=== PATIENT | female | born 1945 | race Hispanic/Latino ===

== ENCOUNTER → 2018-03-20 | Day surgery (SDC) | payer MEDICARE, OTHER ==
[~2018-03-20] MED LIST: ANASTROZOLE1 MG PO; FENTANYL CITRATE/PF 100MCG/2 ML INJ ONE; LETROZOLE2.5 MG PO; LOSARTAN POTAS100 MG PO; MIDAZOLAM HCL 2 MG/2 ML VIAL ONE; OR PHACO EYE KIT ONE; PREOP PHACO EYE KIT ONE; PROLIA60 MG/1 ML INJ; VITAMIN D5000 UNIT PO
--- OUTSIDE RECORDS SUMMARY | 2018-03-20 08:14 | XMS REPORT | Clinical Summary ---
Author Author MERRITT [facility] Address Unknown Phone Unavailable Care Team Providers Care Shipper Name Role Phone José Miguel Wakefield MD PCP Unavailable Allergies No Known Allergies Medications End Date Status Medication Sig Dispensed Refills Start Date Active MULTIVIT Take by 0 &MINERALS/FERROUS FUM mouth. (MULTI VITAMIN ORAL) Active meloxicam (MOBIC) 15 MG Take 15 mg by 0 tablet mouth daily. Active estradiol (ESTRACE) 0.5 Take 0.45 mg 0 MG tablet by mouth daily . Active ferrous sulfate 325 (65 Take 325 mg 0 FE) MG tablet by mouth 3 (three) times daily with meals. Active propranolol (INDERAL) 10 Take 10 mg by 0 05/07/201 MG tabletIndications: mouth 3 5 Chronic hepatitis C (three) times without hepatic coma daily . (HCC), Abnormal MRI of abdomen, Cirrhosis (HCC), Anemia Active ranitidine (ZANTAC) 300 0 06/06/201 MG tabletIndications: 5 Chronic hepatitis C without hepatic coma (HCC) Active milk thistle 175 mg Take 175 mg 0 tablet by mouth daily. Active estrogens, conjugated, Take by mouth 0 (PREMARIN) 0.3 MG tablet for 21 days then do not take for 7 days. . Active lisinopril Take 5 mg by 0 (PRINIVIL,ZESTRIL) 5 MG mouth daily. tabletIndications: Other cirrhosis of liver (HCC), Chronic hepatitis C without hepatic coma (HCC) Active anastrozole (ARIMIDEX) 1 Take 1 mg by 0 mg tablet mouth daily. Active losartan (COZAAR) 100 MG Take 100 mg 0 tablet by mouth daily. Active Missing or Non-Formulary Iron 27 0 Medication mg/vitamin d3 25 mcg(1000iu) 2 by mouth daily. . Active denosumab (PROLIA) 60 Inject 60 mg 0 mg/mL Syrg subcutaneousl y every 6 (six) months. Active Problems Problem Noted Date Chronic fatigue 2017 Obesity 12/14/2015 Advanced fibrosis /early Cirrhosis 08/20/2014 Iron deficiency anemia 08/20/2014 Chronic hepatitis C without hepatic coma 08/01/2014 Screening for malignant neoplasm 05/01/2014 Last Assessment & Plan: There is a strong association between chronic HCV infection and the development of hepatocellular carcinoma. Hepatitis C accounts for at least one third of the cases of HCC in the [place]. Due to the risk of developing HCC, we will order an MRI and AFP today. Immunity status testing 05/01/2014 Last Assessment & Plan: Encounters Care Team Description Date Type Specialty Anna Gamble MD Cirrhosis of liver without ascites, unspecified hepatic cirrhosis type (HCC) 11/16/2017 Hospital Radiology Encounter Ruiz Nolan MD 11/15/2017 Outside Orders Radiology Philomena Maya RN 10/20/2017 Documentation Hepatology Anna Gamble MD Obesity (BMI 30-39.9) (Primary Dx); Cirrhosis of liver without ascites, unspecified hepatic cirrhosis type (HCC); Screening for malignant neoplasm; Immunity status testing; Chronic hepatitis C without hepatic coma (HCC); Chronic fatigue 2017 Office Visit Hepatology Dylon Reyes 04/28/2017 Abstract Hepatology Jeannette Robertson MA 04/18/2017 Documentation Hepatology Krystle Li PA-C Follow-up 04/04/2017 Telephone Hepatology Kylee Mayfield RN 03/27/2017 Abstract Hepatology Krystle Li PA-C Jalal, Prasun Kumar, MD Roberts, Cherrie Denise, RN Other cirrhosis of liver (HCC) (Primary Dx); Screening for malignant neoplasm; Chronic hepatitis C without hepatic coma (HCC); Alcohol use; Immunity status testing; Obesity (BMI 30-39.9); History of hepatitis C 03/21/2017 Office Visit Hepatology after 03/19/2017 Family History Medical History Relation Name Comments Kidney failure Brother Stroke Brother Cancer Father Hypertension Mother Cancer Sister Other Sister bi-sectomy Relation Name Status Comments Brother Father Mother Sister Social History Date Tobacco Use Types Packs/Day Years Used Never Smoker Alcohol Use Drinks/Week oz/Week Comments No 0 Cans of 0.0 beer Sex Assigned at Date Recorded Not on file Industry Job Start Date Occupation Not on file Not on file Not on file Travel End Travel History Travel Start No recent travel history available. Last Filed Vital Signs Time Taken Vital Sign Reading 2017 2:43 PM CDT Blood Pressure 166/80 2017 2:43 PM CDT Pulse 60 2017 2:43 PM CDT Temperature 36.6 C (97.9 F) 2017 2:43 PM CDT Respiratory Rate 18 2017 2:43 PM CDT Oxygen Saturation 97% - Inhaled Oxygen - Concentration 2017 2:43 PM CDT Weight 76.8 kg (169 lb 6.4 oz) 2017 2:43 PM CDT Height 147.3 cm (4' 10") 2017 2:43 PM CDT Body Mass Index 35.4 Plan of Treatment Care Team Description Date Type Specialty Anna Gamble MD [address] [address] Resource, [facility] 03/21/2018 Office Visit Hepatology Health Maintenance Due Date Last Done Comments INFLUENZA VACCINE 01/22/2018 Procedures Comments Procedure Name Priority Date/Time Associated Diagnosis US ABDOMEN COMPLETE Routine 11/16/2017 Cirrhosis of liver 2:10 PM CDT without ascites, unspecified hepatic cirrhosis type (HCC) CBC W/PLT COUNT & AUTO Routine 2017 Cirrhosis of liver DIFFERENTIAL 4:20 PM CDT without ascites, unspecified hepatic cirrhosis type (HCC) TSH Routine 2017 Chronic fatigue 4:20 PM CDT ALPHA FETOPROTEIN (AFP), Routine 2017 Cirrhosis of liver TUMOR MARKER 4:20 PM CDT without ascites, unspecified hepatic cirrhosis type (HCC) PROTHROMBIN TIME/INR Routine 2017 Cirrhosis of liver 4:20 PM CDT without ascites, unspecified hepatic cirrhosis type (HCC) CBC W/PLT COUNT & AUTO Routine 2017 Cirrhosis of liver DIFFERENTIAL 4:20 PM CDT without ascites, unspecified hepatic cirrhosis type (HCC) HEPATIC FUNCTION PANEL Routine 2017 Cirrhosis of liver 4:20 PM CDT without ascites, unspecified hepatic cirrhosis type (HCC) BASIC METABOLIC PANEL (7) Routine 2017 Cirrhosis of liver 4:20 PM CDT without ascites, unspecified hepatic cirrhosis type (HCC) PROTHROMBIN TIME/INR Routine 03/21/2017 Screening for malignant 12:28 PM [employer] neoplasm Chronic hepatitis C without hepatic coma (HCC) Other cirrhosis of liver (HCC) CBC W/PLT COUNT & AUTO Routine 03/21/2017 Screening for malignant DIFFERENTIAL 11:23 AM [employer] neoplasm Chronic hepatitis C without hepatic coma (HCC) Other cirrhosis of liver (HCC) IRON, TIBC, % SAT. Routine 03/21/2017 Screening for malignant (WITHOUT FERRITIN) 11:23 AM [employer] neoplasm Chronic hepatitis C without hepatic coma (HCC) Other cirrhosis of liver (HCC) FERRITIN Routine 03/21/2017 Screening for malignant 11:23 AM [employer] neoplasm Chronic hepatitis C without hepatic coma (HCC) Other cirrhosis of liver (HCC) GAMMA GLUTAMYL Routine 03/21/2017 Screening for malignant TRANSFERASE (GGT) 11:23 AM [employer] neoplasm Chronic hepatitis C without hepatic coma (HCC) Other cirrhosis of liver (HCC) HEPATITIS C PCR, Routine 03/21/2017 Screening for malignant QUANTITATIVE 11:23 AM [employer] neoplasm Chronic hepatitis C without hepatic coma (HCC) Other cirrhosis of liver (HCC) ALPHA FETOPROTEIN (AFP), Routine 03/21/2017 Screening for malignant TUMOR MARKER 11:23 AM [employer] neoplasm Chronic hepatitis C without hepatic coma (HCC) Other cirrhosis of liver (HCC) CBC W/PLT COUNT & AUTO Routine 03/21/2017 Screening for malignant DIFFERENTIAL 11:23 AM [employer] neoplasm Chronic hepatitis C without hepatic coma (HCC) Other cirrhosis of liver (HCC) HEPATIC FUNCTION PANEL Routine 03/21/2017 Screening for malignant 11:23 AM [employer] neoplasm Chronic hepatitis C without hepatic coma (HCC) Other cirrhosis of liver (HCC) BASIC METABOLIC PANEL (7) Routine 03/21/2017 Screening for malignant 11:23 AM [employer] neoplasm Chronic hepatitis C without hepatic coma (HCC) Other cirrhosis of liver (HCC) after 03/19/2017 Results * US abdomen complete (11/16/2017 2:10 PM CDT) Narrative Performed At FINAL REPORT Data Expedition Ultrasound of the Abdomen, complete Clinical History:Cirrhosis Comparison: None. Discussion: Sonographic evaluation of the abdomen is performed. Liver: Measures 12.1 cm in length at the right midclavicular line. Diffusely increased echogenicity.No lesion is identified by ultrasound.Main portal vein diameter measures 1.2 cm. Biliary tree:Common duct measures 7 mm.No intrahepatic biliary dilatation. Gallbladder: Surgically absent. Pancreas: Not well seen due to overlying bowel gas. Ascites:None seen Spleen:Measures 9.6 cm in length. Kidneys: Right kidney measures 10.2 x 4.2 x 4.7 cm.Left kidney measures 11.6 x 4.8 x 4.6 cm.Normal cortical echogenicity. No shadowing calculus, no hydronephrosis. IVC/Aorta:Segments partially seen. Elastography performed in the liver. Average ShearWave velocity is 1.39 m/s, corresponding to mild to moderate (F2-F3) fibrosis. Impression: Elastography performed in the liver. Average ShearWave velocity is 1.39 m/s, corresponding to mild to moderate (F2-F3) fibrosis. Cirrhotic pathology of the liver. No sonographically evident focal liver lesion. Signed: Chris Javier MD Report Verified Date/Time:11/16/2017 14:32:29 Reading Location: [address] Radiology Reading Room Procedure Note Interface, External Ris In - 11/16/2017 2:34 PM CDT FINAL REPORT Ultrasound of the Abdomen, complete Clinical History: Cirrhosis Comparison: None. Discussion: Sonographic evaluation of the abdomen is performed. Liver: Measures 12.1 cm in length at the right midclavicular line. Diffusely increased echogenicity. No lesion is identified by ultrasound. Main portal vein diameter measures 1.2 cm. Biliary tree: Common duct measures 7 mm. No intrahepatic biliary dilatation. Gallbladder: Surgically absent. Pancreas: Not well seen due to overlying bowel gas. Ascites: None seen Spleen: Measures 9.6 cm in length. Kidneys: Right kidney measures 10.2 x 4.2 x 4.7 cm. Left kidney measures 11.6 x 4.8 x 4.6 cm. Normal cortical echogenicity. No shadowing calculus, no hydronephrosis. IVC/Aorta: Segments partially seen. Elastography performed in the liver. Average ShearWave velocity is 1.39 m/s, corresponding to mild to moderate (F2-F3) fibrosis. Impression: Elastography performed in the liver. Average ShearWave velocity is 1.39 m/s, corresponding to mild to moderate (F2-F3) fibrosis. Cirrhotic pathology of the liver. No sonographically evident focal liver lesion. Signed: Chris Javier MD Report Verified Date/Time: 11/16/2017 14:32:29 Reading Location: [address] Radiology Reading Room Performing Organization Address City/State/Zipcode Phone Number [facility] * CBC with platelet count + automated diff (2017 4:20 PM CDT) Only the most recent of 2 results within the time period is included. WBC 10.2 3.5 - 10.5 K/L [facility] RBC 4.60 3.93 - 5.22 M/L [facility] Hemoglobin 13.6 11.2 - 15.7 GM/DL [facility] Hematocrit 41.6 34.1 - 44.9 % [facility] MCV 90.4 79.4 - 94.8 fL [facility] MCH 29.6 25.6 - 32.2 pg [facility] MCHC 32.7 32.2 - 35.5 GM/DL [facility] RDW 13.6 11.7 - 14.4 % [facility] Platelets 170 150 - 450 K/CU MM [facility] MPV 11.6 9.4 - 12.3 fL [facility] nRBC 0 0 - 0 /100 WBC [facility] % Neutros 88 % [facility] % Lymphs 7 % [facility] % Monos 3 % [facility] % Eos 0 % [facility] % Baso 0 % [facility] # Neutros 8.98 (H) 1.56 - 6.13 K/L [facility] # Lymphs 0.67 (L) 1.18 - 3.74 K/L [facility] # Monos 0.33 0.24 - 0.36 K/L [facility] # Eos 0.00 (L) 0.04 - 0.36 K/L [facility] # Baso 0.01 0.01 - 0.08 K/L [facility] Immature 2 (H) 0 - 1 % [facility] Granulocytes-[facility] Specimen Blood Performing Organization Address City/State/Zipcode Phone Number [address] [address] [facility] * Alpha fetoprotein (AFP), tumor marker (2017 4:20 PM CDT) Only the most recent of 2 results within the time period is included. Alpha-Fetoprotein 4.1 <10.0 ng/mL [facility] Specimen Blood Performing Organization Address City/State/Zipcode Phone Number [address] [address] [facility] * Pro-time/INR (2017 4:20 PM CDT) Only the most recent of 2 results within the time period is included. Protime 14.5 11.7 - 14.7 seconds [facility] INR 1.1 <=5.9 [facility] Specimen Blood Narrative Performed At RECOMMENDED COUMADIN/WARFARIN INR THERAPY RANGES [facility] STANDARD DOSE: 2.0 - 3.0 Includes: PROPHYLAXIS for venous thrombosis, [facility] systemic embolization; TREATMENT for venous thrombosis and/or pulmonary embolus. HIGH RISK: Target INR is 2.5-3.5 for patients with mechanical heart valves. Performing Organization Address City/[facility] Phone Number [address] [address] [phone] [place] [address] * TSH (2017 4:20 PM CDT) TSH 0.12 (L) 0.35 - 4.94 uIU/mL [facility] Specimen Blood Performing Organization Address [facility] Phone Number [address] [address] [phone] * Hepatic function panel (2017 4:20 PM CDT) Only the most recent of 2 results within the time period is included. Protein, Total 7.4 6.0 - 8.3 gm/dL [facility] Albumin 4.3 3.5 - 5.0 g/dL [facility] Total Bilirubin 0.5 0.2 - 1.2 mg/dL [facility] Bilirubin, Direct 0.2 0.1 - 0.5 mg/dL [facility] Alkaline Phosphatase 99 40 - 150 U/L [facility] AST 20 5 - 34 U/L [facility] ALT 23 6 - 55 U/L [facility] Specimen Blood Performing Organization Address [facility] Phone Number [address] [address] [phone] [place] [address] * Basic Metabolic Panel (2017 4:20 PM CDT) Only the most recent of 2 results within the time period is included. Sodium 140 136 - 145 meq/L [facility] Potassium 4.1 3.5 - 5.1 meq/L [facility] Chloride 111 (H) 98 - 107 meq/L [facility] CO2 19 (L) 22 - 29 meq/L [facility] BUN 20 7 - 21 mg/dL [facility] Creatinine 0.70 0.57 - 1.25 mg/dL [facility] Glucose 130 (H) 70 - 105 mg/dL [facility] Calcium 9.0 8.4 - 10.2 mg/dL [facility] EGFR 82Comment: ESTIMATED GFR IS mL/min/1.73 sq m [facility] NOT ACCURATE CREATININE [facility] CLEARANCE IN PREDICTING GLOMERULAR FILTRATION RATE. ESTIMATED GFR IS NOT APPLICABLE FOR DIALYSIS PATIENTS. Specimen Blood Performing Organization Address City/[facility]/Zipcode Phone Number [address] * Iron, TIBC, % sat. (without ferritin) (03/21/2017 11:23 AM [employer]) Iron 190 (H) 40 - 160 ug/dL [facility] TIBC 438 250 - 450 ug/dL [facility] Iron % Saturation 43 20 - 55 % [facility] Specimen Blood Performing Organization Address City/State/Zipcode Phone Number [address] * Hepatitis C RNA, Quantitative (03/21/2017 11:23 AM [employer]) HCV PCR, Quantitative HCV RNA not detected HCV RNA not detected [facility] Specimen Blood Narrative Performed At This test uses a Real-Time Polymerase Chain Reaction (RT-PCR) methodology and [facility] was performed using [employer] Ampliprep/LUIS TaqMan HCV test kit version 2.0 [facility] ([employer] Reportable range for this assay is 15 - 100,000,000 IU per mL (1.18 - 8.00 Log IU/mL). This test uses a Real-Time Polymerase Chain Reaction (RT-PCR) methodology and was performed using [employer] Ampliprep/LUIS TaqMan HCV test kit version 2.0 ([employer] Reportable range for this assay is 15 - 100,000,000 IU per mL (1.18 - 8.00 Log IU/mL). Performing Organization Address City/[facility] Phone Number [address] [address] [facility] * Gamma Glutamyl Transferase (GGT) (03/21/2017 11:23 AM [employer]) GGT 41 9 - 64 U/L [facility] Specimen Blood Performing Organization Address [facility] Phone Number [address] [address] [facility] * Ferritin (03/21/2017 11:23 AM [employer]) Ferritin 40 5 - 275 ng/mL [facility] Specimen Blood Performing Organization Address [facility] Phone Number [address] [address] [facility] after 03/19/2017 Insurance Payer Benefit Subscriber ID Type Phone Address Plan / Group MEDICARE MEDICARE A xxxxxxxxxx Medicare B CIGNA - MGD CARE CIGNA xxxxxxxxxxx HMO/POS HMO/POS/OP EN ACCESS xxxxxxxxx Other Govt FOR LIFE (, [place], [employer], etc.)
--- OUTSIDE RECORDS SUMMARY | 2018-03-20 08:15 | XMS REPORT | Summary of Care ---
Author Author NERY DEL ANGEL M.D. Organization Unknown Address Unknown Phone Unavailable Care Team Providers Care Tonger Name Role Phone NERY DEL ANGEL M.D. Unavailable Unavailable Unavailable Unavailable Functional Status Name Dates Details Functional status health issues are not documented Status: Name Dates Details Cognitive status health issues are not documented Status: Problems Name Dates Details Transient synovitis, left knee (727.00, M67.362) Status: Active Transient synovitis, right knee (727.00, M67.361) Status: Active Medications Name Dates Details Anastrozole TABS Active Losartan Potassium TABS * Refills: 0 Active Allergies and Adverse Reactions Name Dates Details No Known Drug Allergies (Allergy) Status: Active Past Medical History Name Dates Details History of Back pain (724.5, M54.9) Status: Resolved History of Cancer (199.1, C80.1) Status: Resolved History of Gallbladder disease (575.9, K82.9) Status: Resolved History of Hepatitis (573.3, K75.9) Status: Resolved History of High blood pressure (401.9, I10) Status: Resolved Procedures Procedure Dates Details History of Cholecystotomy Completed History of Hysterectomy Completed Immunization Name Dates Details Immunizations not documented Social History Name Dates Details - Status: Name Dates Details Never smoker Vital Signs Date Test Result Details [id number] Physical Findings 5 Status: Comments: Recently Traveled Internationally? If Yes Where? Height 60 in Status: Weight 172 lb Status: Body Mass Index Calculated 33.59 kg/m2 Status: Body Surface Area Calculated 1.75 m2 Status: Results Date Description Value Details [id number] [U] XR KNEE 1 OR 2 VWS BILATERAL XR KNEE 1 OR 2 VWS BILATERAL Images acquired, not reported on this accession number. Plan of Care Name Dates Details Planned Observations Planned Goals not documented Planned Encounters Appointment; NERY DEL ANGEL M.D. On: 16-Feb-2018 14:45 Interventions Provided Labs/Procedures/Imaging* [U] XR KNEE 1 OR 2 VWS BILATERAL; Done: 19 Jan 2018 Follow-ups/Referrals* Physical Therapy Referral Ortho; Done: 19 Jan 2018 Plan* Patient Education/Instructions: * Patient Education Provided * Reassurance * Counseling Provided - Discussed with Family/Patient * Family/Patient given opportunity to ask questions. * Family/Patient Verbalized Understanding. * Family/Patient informed will continue to monitor. * Orders: * Physical Therapy * Follow Up: * Return to the clinic in 4 weeks or as needed. Instructions Name Dates Details Instructions not documented Encounters Appointment; NERY DEL ANGEL M.D. Encounter Diagnosis: Problem not documented On: 19-Jan-2018 14:40
--- OUTSIDE RECORDS SUMMARY | 2018-03-20 08:15 | XMS REPORT ---
Author Author [facility] Address Unknown Phone Unavailable Care Team Providers Care Water Sponger Name Role Phone ELLIEMERLIN SINGH Unavailable Unavailable RAJANI FLORES Unavailable Unavailable Problems This patient has no known problems. Allergies, Adverse Reactions, Alerts This patient has no known allergies or adverse reactions. Medications This patient has no known medications. Results Test Description Test Time Test Comments Text Results Atomic Results Result Comments U/S, ABDOMINAL, COMPLETE 2017-11-16 14:32:00 With elastographyReason for Exam:- >cirrhosis, screening for cancerLocation->[facility] FINAL [facility] Ultrasound of the Abdomen, complete [...] sonographically evident focal liver lesion. Signed: Chris Javierort Verified Date/Time: 11/16/2017 14:32:29 Reading Location: [address] Radiology Reading Room TIC FUNCTION PANEL 2017 17:47:00 TOTAL PROTEIN (BEAKER) (test pfdm=269) 7.4 gm/dL 6.0-8.3 ALBUMIN (BEAKER) (test tbdd=7229) 4.3 g/dL 3.5-5.0 BILIRUBIN TOTAL (BEAKER) (test hrwb=489) 0.5 mg/dL 0.2-1.2 BILIRUBIN DIRECT (BEAKER) (test sjyq=724) 0.2 mg/dL 0.1-0.5 ALKALINE PHOSPHATASE (BEAKER) (test qjaf=224) 99 U/L 40-150 AST (SGOT) (BEAKER) (test azvp=921) 20 U/L 5-34 ALT (SGPT) (BEAKER) (test fmvh=931) 23 U/L 6-55 BASIC METABOLIC [id number] 17:47:00* Test Item Value Reference Range Comments SODIUM (BEAKER) (test zvqo=494) 140 meq/L 136-145 POTASSIUM (BEAKER) (test nkti=468) 4.1 meq/L 3.5-5.1 CHLORIDE (BEAKER) (test qclf=657) 111 meq/L 98-107 CO2 (BEAKER) (test lbkm=412) 19 meq/L 22-29 BLOOD UREA NITROGEN (BEAKER) (test egqq=763) 20 mg/dL 7-21 CREATININE (BEAKER) (test qqsg=817) 0.70 mg/dL 0.57-1.25 GLUCOSE RANDOM (BEAKER) (test avxp=063) 130 mg/dL 70-105 CALCIUM (BEAKER) (test dwcy=596) 9.0 mg/dL 8.4-10.2 EGFR (BEAKER) (test swoz=9661) 82 mL/min/1.73 sq m ESTIMATED GFR IS NOT ACCURATE CREATININE CLEARANCE IN PREDICTING GLOMERULAR FILTRATION RATE. ESTIMATED GFR IS NOT APPLICABLE FOR DIALYSIS PATIENTS. [id number] 17:40:00* Test Item Value Reference Range Comments THYROID STIMULATING HORMONE (BEAKER) (test whsh=969) 0.12 uIU/mL 0.35-4.94 ALPHA FETOPROTEIN (AFP), TUMOR [id number] 17:39:00* Test Item Value Reference Range Comments ALPHA-FETOPROTEIN (BEAKER) (test tcfg=4281) 4.1 ng/mL <10.0 PROTHROMBIN TIME/[id number] 17:02:00* Test Item Value Reference Range Comments PROTIME (BEAKER) (test yiac=093) 14.5 seconds 11.7-14.7 INR (BEAKER) (test cyra=495) 1.1 <=5.9 RECOMMENDED COUMADIN/WARFARIN INR THERAPY RANGESSTANDARD DOSE: 2.0 - 3.0 Inclu ray: PROPHYLAXIS for venous thrombosis, systemic embolization; TREATMENT for saul ous thrombosis and/or pulmonary embolus.HIGH RISK: Target INR is 2.5-3.5 for pat ients with mechanical heart valves.CBC W/PLT COUNT & AUTO [id number] 16:54:00* Test Item Value Reference Range Comments WHITE BLOOD CELL COUNT (BEAKER) (test scej=193) 10.2 K/ L 3.5-10.5 RED BLOOD CELL COUNT (BEAKER) (test bizx=969) 4.60 M/ L 3.93-5.22 HEMOGLOBIN (BEAKER) (test mnvh=131) 13.6 GM/DL 11.2-15.7 HEMATOCRIT (BEAKER) (test nnqz=730) 41.6 % 34.1-44.9 MEAN CORPUSCULAR VOLUME (BEAKER) (test gija=825) 90.4 fL 79.4-94.8 MEAN CORPUSCULAR HEMOGLOBIN (BEAKER) (test yroh=443) 29.6 pg 25.6-32.2 MEAN CORPUSCULAR HEMOGLOBIN CONC (BEAKER) (test udsm=549) 32.7 GM/DL 32.2-35.5 RED CELL DISTRIBUTION WIDTH (BEAKER) (test avju=153) 13.6 % 11.7-14.4 PLATELET COUNT (BEAKER) (test njfi=394) 170 K/CU MM 150-450 MEAN PLATELET VOLUME (BEAKER) (test aorg=842) 11.6 fL 9.4-12.3 NUCLEATED RED BLOOD CELLS (BEAKER) (test fgdk=302) 0 /100 WBC 0-0 NEUTROPHILS RELATIVE PERCENT (BEAKER) (test yxbr=606) 88 % LYMPHOCYTES RELATIVE PERCENT (BEAKER) (test tvdv=105) 7 % MONOCYTES RELATIVE PERCENT (BEAKER) (test tccz=694) 3 % EOSINOPHILS RELATIVE PERCENT (BEAKER) (test bejt=185) 0 % BASOPHILS RELATIVE PERCENT (BEAKER) (test ublq=380) 0 % NEUTROPHILS ABSOLUTE COUNT (BEAKER) (test cpmk=701) 8.98 K/ L 1.56-6.13 LYMPHOCYTES ABSOLUTE COUNT (BEAKER) (test jymi=403) 0.67 K/ L 1.18-3.74 MONOCYTES ABSOLUTE COUNT (BEAKER) (test raov=915) 0.33 K/ L 0.24-0.36 EOSINOPHILS ABSOLUTE COUNT (BEAKER) (test yoli=518) 0.00 K/ L 0.04-0.36 BASOPHILS ABSOLUTE COUNT (BEAKER) (test smxu=735) 0.01 K/ L 0.01-0.08 IMMATURE GRANULOCYTES-RELATIVE PERCENT (BEAKER) (test ufbn=1230) 2 % 0-1 HEPATITIS C PCR, [id number] 05:55:00* Test Item Value Reference Range Comments HCV RESULT COMPONENT (BEAKER) (test thbr=1252) HCV RNA not detected HCV RNA not detected This test uses a Real-Time Polymerase Chain Reaction (RT-PCR) methodology and wa s performed using LUIS Ampliprep/LUIS TaqMan HCV test kit version 2.0 ([employer]).Reportable range for this assay is 15 - 100,000,000 IU per mL (1.18 - 8.00 Log IU/mL).This test uses a Real-Time Polymerase Chain Reac tion (RT-PCR) methodology and was performed using LUIS Ampliprep/LUIS TaqMan HCV test kit version 2.0 ([employer]).Reportable range for t his assay is 15 - 100,000,000 IU per mL (1.18 - 8.00 Log IU/mL).HEPATIC FUNCTION [id number] 15:30:00* Test Item Value Reference Range Comments TOTAL PROTEIN (BEAKER) (test ovki=340) 7.1 gm/dL 6.0-8.3 ALBUMIN (BEAKER) (test tmjt=5730) 4.1 g/dL 3.5-5.0 BILIRUBIN TOTAL (BEAKER) (test fntd=158) 0.8 mg/dL 0.2-1.2 BILIRUBIN DIRECT (BEAKER) (test shvr=974) 0.3 mg/dL 0.1-0.5 ALKALINE PHOSPHATASE (BEAKER) (test bdca=201) 81 U/L 40-150 AST (SGOT) (BEAKER) (test thzp=385) 25 U/L 5-34 ALT (SGPT) (BEAKER) (test lvop=215) 25 U/L 6-55 BASIC METABOLIC [id number] 14:28:00* Test Item Value Reference Range Comments SODIUM (BEAKER) (test uwya=773) 141 meq/L 136-145 POTASSIUM (BEAKER) (test rzzn=630) 4.4 meq/L 3.5-5.1 CHLORIDE (BEAKER) (test mdmv=113) 111 meq/L 98-107 CO2 (BEAKER) (test oamh=387) 22 meq/L 22-29 BLOOD UREA NITROGEN (BEAKER) (test kekc=434) 16 mg/dL 7-21 CREATININE (BEAKER) (test tgho=141) 0.73 mg/dL 0.57-1.25 GLUCOSE RANDOM (BEAKER) (test hikl=207) 100 mg/dL 70-105 CALCIUM (BEAKER) (test czcf=347) 9.4 mg/dL 8.4-10.2 EGFR (BEAKER) (test vzum=8115) 79 mL/min/1.73 sq m ESTIMATED GFR IS NOT ACCURATE CREATININE CLEARANCE IN PREDICTING GLOMERULAR FILTRATION RATE. ESTIMATED GFR IS NOT APPLICABLE FOR DIALYSIS PATIENTS. GAMMA GLUTAMYL TRANSFERASE (GGT)2017-03-21 14:28:00* Test Item Value Reference Range Comments GAMMA GLUTAMYL TRANSFERASE (BEAKER) (test ugih=234) 41 U/L 9-64 IRON, TIBC, % SAT. (WITHOUT FERRITIN)2017-03-21 14:28:00* Test Item Value Reference Range Comments IRON (BEAKER) (test fhkf=081) 190 ug/dL 40-160 TOTAL IRON BINDING CAPACITY (BEAKER) (test oktm=816) 438 ug/dL 250-450 IRON % SATURATION (2) (BEAKER) (test xome=3747) 43 % 20-55 ALPHA FETOPROTEIN (AFP), TUMOR [id number] 13:48:00* Test Item Value Reference Range Comments ALPHA-FETOPROTEIN (BEAKER) (test vqtm=5687) 4.1 ng/mL <10.0 [id number] 12:47:00* Test Item Value Reference Range Comments FERRITIN (BEAKER) (test jeri=874) 40 ng/mL 5-275 PROTHROMBIN TIME/[id number] 12:28:00* Test Item Value Reference Range Comments PROTIME (BEAKER) (test nglx=661) 13.7 seconds 11.7-14.7 INR (BEAKER) (test bvie=755) 1.1 <=5.9 RECOMMENDED COUMADIN/WARFARIN INR THERAPY RANGESSTANDARD DOSE: 2.0 - 3.0 Inclu ray: PROPHYLAXIS for venous thrombosis, systemic embolization; TREATMENT for saul ous thrombosis and/or pulmonary embolus.HIGH RISK: Target INR is 2.5-3.5 for pat ients with mechanical heart valves.CBC W/PLT COUNT & AUTO [id number] 12:09:00* Test Item Value Reference Range Comments WHITE BLOOD CELL COUNT (BEAKER) (test ijhl=766) 4.4 K/ L 3.5-10.5 RED BLOOD CELL COUNT (BEAKER) (test zndd=991) 4.22 M/ L 3.93-5.22 HEMOGLOBIN (BEAKER) (test rnyb=850) 12.6 GM/DL 11.2-15.7 HEMATOCRIT (BEAKER) (test aefb=651) 38.0 % 34.1-44.9 MEAN CORPUSCULAR VOLUME (BEAKER) (test ozho=929) 90.0 fL 79.4-94.8 MEAN CORPUSCULAR HEMOGLOBIN (BEAKER) (test xrsf=888) 29.9 pg 25.6-32.2 MEAN CORPUSCULAR HEMOGLOBIN CONC (BEAKER) (test jsud=495) 33.2 GM/DL 32.2-35.5 RED CELL DISTRIBUTION WIDTH (BEAKER) (test hmvx=862) 14.0 % 11.7-14.4 PLATELET COUNT (BEAKER) (test zuyu=969) 147 K/CU MM 150-450 MEAN PLATELET VOLUME (BEAKER) (test zjxw=715) 12.0 fL 9.4-12.3 NUCLEATED RED BLOOD CELLS (BEAKER) (test rwfg=186) 0 /100 WBC 0-0 NEUTROPHILS RELATIVE PERCENT (BEAKER) (test yrtk=348) 54 % LYMPHOCYTES RELATIVE PERCENT (BEAKER) (test bgoq=669) 37 % MONOCYTES RELATIVE PERCENT (BEAKER) (test efxn=044) 7 % EOSINOPHILS RELATIVE PERCENT (BEAKER) (test jmxi=937) 2 % BASOPHILS RELATIVE PERCENT (BEAKER) (test ignf=570) 1 % NEUTROPHILS ABSOLUTE COUNT (BEAKER) (test taah=437) 2.38 K/ L 1.56-6.13 LYMPHOCYTES ABSOLUTE COUNT (BEAKER) (test cwip=816) 1.62 K/ L 1.18-3.74 MONOCYTES ABSOLUTE COUNT (BEAKER) (test shed=919) 0.33 K/ L 0.24-0.36 EOSINOPHILS ABSOLUTE COUNT (BEAKER) (test ynhs=971) 0.08 K/ L 0.04-0.36 BASOPHILS ABSOLUTE COUNT (BEAKER) (test lxyz=540) 0.02 K/ L 0.01-0.08 IMMATURE GRANULOCYTES-RELATIVE PERCENT (BEAKER) (test lyrf=6304) 0 % 0-1 ALPHA FETOPROTEIN (AFP), TUMOR [id number] 11:27:00* Test Item Value Reference Range Comments ALPHA-FETOPROTEIN (BEAKER) (test vjxv=0083) 4.6 ng/mL <10.0 Effective 03/11/2014: Reference Range ChangeNew: <10.0 Previous: 0.0-8.0 HEPATIC FUNCTION [id number] 11:09:00* Test Item Value Reference Range Comments TOTAL PROTEIN (BEAKER) (test vjcn=377) 6.8 gm/dL 6.0-8.3 ALBUMIN (BEAKER) (test vulh=5521) 3.8 g/dL 3.5-5.0 BILIRUBIN TOTAL (BEAKER) (test jege=787) 0.6 mg/dL 0.2-1.2 BILIRUBIN DIRECT (BEAKER) (test scfu=280) 0.2 mg/dL 0.1-0.5 ALKALINE PHOSPHATASE (BEAKER) (test faac=432) 94 U/L 40-150 AST (SGOT) (BEAKER) (test ndos=015) 23 U/L 5-34 ALT (SGPT) (BEAKER) (test weia=887) 19 U/L 6-55 BASIC METABOLIC [id number] 11:09:00* Test Item Value Reference Range Comments SODIUM (BEAKER) (test awpz=342) 143 meq/L 136-145 POTASSIUM (BEAKER) (test xtpa=709) 4.6 meq/L 3.5-5.1 CHLORIDE (BEAKER) (test hpnl=479) 111 meq/L 98-107 CO2 (BEAKER) (test lzrn=315) 24 meq/L 22-29 BLOOD UREA NITROGEN (BEAKER) (test ratj=571) 17 mg/dL 7-21 CREATININE (BEAKER) (test qfez=789) 0.76 mg/dL 0.57-1.25 GLUCOSE RANDOM (BEAKER) (test mlft=237) 100 mg/dL 70-105 CALCIUM (BEAKER) (test euqv=428) 8.7 mg/dL 8.4-10.2 EGFR (BEAKER) (test ckiq=9287) 75 mL/min/1.73 sq m ESTIMATED GFR IS NOT ACCURATE CREATININE CLEARANCE IN PREDICTING GLOMERULAR FILTRATION RATE. ESTIMATED GFR IS NOT APPLICABLE FOR DIALYSIS PATIENTS. GAMMA GLUTAMYL TRANSFERASE (GGT)2016-09-05 11:09:00* Test Item Value Reference Range Comments GAMMA GLUTAMYL TRANSFERASE (BEAKER) (test peay=695) 34 U/L 9-64 CBC W/PLT COUNT & AUTO [id number] 10:39:00* Test Item Value Reference Range Comments WHITE BLOOD CELL COUNT (BEAKER) (test tvso=916) 4.6 K/ L 4.0-10.0 RED BLOOD CELL COUNT (BEAKER) (test aomx=833) 4.35 M/ L 4.00-5.00 HEMOGLOBIN (BEAKER) (test vsfe=404) 13.4 GM/DL 12.0-15.0 HEMATOCRIT (BEAKER) (test yowm=665) 40.5 % 36.0-45.0 MEAN CORPUSCULAR VOLUME (BEAKER) (test cfsh=752) 93.1 fL 82.0-99.0 MEAN CORPUSCULAR HEMOGLOBIN (BEAKER) (test fygo=350) 30.9 pg 27.0-33.0 MEAN CORPUSCULAR HEMOGLOBIN CONC (BEAKER) (test kkgl=674) 33.2 GM/DL 32.0-36.0 RED CELL DISTRIBUTION WIDTH (BEAKER) (test spgr=726) 11.7 % 10.3-14.2 PLATELET COUNT (BEAKER) (test mhxw=281) 122 K/CU MM 150-430 MEAN PLATELET VOLUME (BEAKER) (test gtbc=716) 9.0 fL 6.5-10.5 NUCLEATED RED BLOOD CELLS (BEAKER) (test llec=047) 0 /100 WBC 0-0 NEUTROPHILS RELATIVE PERCENT (BEAKER) (test enmu=892) 65 % LYMPHOCYTES RELATIVE PERCENT (BEAKER) (test byhh=936) 26 % MONOCYTES RELATIVE PERCENT (BEAKER) (test nccn=436) 6 % EOSINOPHILS RELATIVE PERCENT (BEAKER) (test euci=495) 3 % BASOPHILS RELATIVE PERCENT (BEAKER) (test fxge=165) 1 % NEUTROPHILS ABSOLUTE COUNT (BEAKER) (test oneo=545) 2.98 K/ L 1.80-8.00 LYMPHOCYTES ABSOLUTE COUNT (BEAKER) (test zmwi=617) 1.17 K/ L 1.48-4.50 MONOCYTES ABSOLUTE COUNT (BEAKER) (test ldcm=367) 0.30 K/ L 0.00-1.30 EOSINOPHILS ABSOLUTE COUNT (BEAKER) (test pyyy=334) 0.13 K/ L 0.00-0.50 BASOPHILS ABSOLUTE COUNT (BEAKER) (test ejle=161) 0.02 K/ L 0.00-0.20 0.00PROTHROMBIN TIME/[id number] 10:33:00* Test Item Value Reference Range Comments PROTIME (BEAKER) (test trgx=307) 13.7 seconds 11.7-14.7 INR (BEAKER) (test ghgv=301) 1.1 <=5.9 RECOMMENDED COUMADIN/WARFARIN INR THERAPY RANGESSTANDARD DOSE: 2.0 - 3.0 Inclu ray: PROPHYLAXIS for venous thrombosis, systemic embolization; TREATMENT for saul ous thrombosis and/or pulmonary embolus.HIGH RISK: Target INR is 2.5-3.5 for pat ients with mechanical heart valves.
[2018-03-20 11:15] VITALS: BP 143/76
== END | disposition home or self-care (01) ==
LOC: OR 08:11
PROVIDERS: ATTEND Ophthalmology
DX: H25.11 Age-related nuclear cataract, right eye (principal); I10 Essential (primary) hypertension; J30.2 Other seasonal allergic rhinitis; Z74.09 Other reduced mobility; M25.561 Pain in right knee; M25.562 Pain in left knee; G89.29 Other chronic pain; F41.9 Anxiety disorder, unspecified; Z68.34 Body mass index [BMI] 34.0-34.9, adult; Z86.19 Personal history of other infectious and parasitic diseases
CPT/HCPCS: 66984; J2250; V2632

== ENCOUNTER → 2018-04-10 | Day surgery (SDC) | payer MEDICARE, OTHER ==
--- OUTSIDE RECORDS SUMMARY | 2018-04-10 07:56 | XMS REPORT | Clinical Summary ---
Author Author [facility] Organization [facility] Address Unknown Phone Unavailable Care Team Providers Care Agriculture Teacher Name Role Phone José Miguel Wakefield MD PCP Unavailable Allergies No Known Allergies Medications End Date Status Medication Sig Dispensed Refills Start Date Active MULTIVIT Take by 0 &MINERALS/FERROUS FUM mouth. (MULTI VITAMIN ORAL) Active ferrous sulfate 325 (65 Take 325 mg 0 FE) MG tablet by mouth 3 (three) times daily with meals. Active losartan (COZAAR) 100 MG Take 100 mg 0 tablet by mouth daily. Active Missing or Non-Formulary Iron 27 0 Medication mg/vitamin d3 25 mcg(1000iu) 2 by mouth daily. . Active denosumab (PROLIA) 60 Inject 60 mg 0 mg/mL Syrg subcutaneousl y every 6 (six) months. Active letrozole (FEMARA) 2.5 mg Take 2.5 mg 0 tablet by mouth daily. 03/29/2018 Discontinued meloxicam (MOBIC) 15 MG Take 15 mg by 0 tablet mouth daily. 03/29/2018 Discontinued estradiol (ESTRACE) 0.5 Take 0.45 mg 0 MG tablet by mouth daily . 03/29/2018 Discontinued propranolol (INDERAL) 10 Take 10 mg by 0 MG tabletIndications: mouth 3 5 Chronic hepatitis C (three) times without hepatic coma daily . (HCC), Abnormal MRI of abdomen, Cirrhosis (HCC), Anemia 03/29/2018 Discontinued ranitidine (ZANTAC) 300 0 MG tabletIndications: 5 Chronic hepatitis C without hepatic coma (HCC) 03/29/2018 Discontinued milk thistle 175 mg Take 175 mg 0 tablet by mouth daily. 03/29/2018 Discontinued estrogens, conjugated, Take by mouth 0 (PREMARIN) 0.3 MG tablet for 21 days then do not take for 7 days. . 03/29/2018 Discontinued lisinopril Take 5 mg by 0 (PRINIVIL,ZESTRIL) 5 MG mouth daily. tabletIndications: Other cirrhosis of liver (HCC), Chronic hepatitis C without hepatic coma (HCC) 03/29/2018 Discontinued anastrozole (ARIMIDEX) 1 Take 1 mg by 0 mg tablet mouth daily. Active Problems Problem Noted Date Alcohol use 03/29/2018 Breast cancer in female 03/29/2018 Chronic fatigue 2017 Obesity 12/14/2015 Advanced fibrosis [...] Description Date Type Specialty Anna Gamble MD Counts, [place], [place] Cirrhosis of liver without ascites, unspecified hepatic cirrhosis type (HCC) (Primary Dx); Chronic hepatitis C without hepatic coma (HCC); Screening for malignant neoplasm; Immunity status testing; Iron deficiency anemia, unspecified iron deficiency anemia type; Class 2 severe obesity with serious comorbidity and body mass index (BMI) of 35.0 to 35.9 in adult, unspecified obesity type (HCC); Alcohol use; Malignant neoplasm of female breast, unspecified estrogen receptor status, unspecified laterality, unspecified site of breast (HCC) 03/29/2018 Office Visit Hepatology System, Provider Not In 03/27/2018 Outside Orders Central Scheduling Anna Gamble MD Cirrhosis of liver without [...] fatigue 2017 Office Visit Hepatology Dylon Reyes E 04/28/2017 Abstract Hepatology Jeannetet Robertson MA 04/18/2017 Documentation Hepatology after 04/09/2017 Family History Medical History Relation Name Comments Kidney failure Brother Stroke Brother Cancer Father Hypertension Mother Cancer Sister Other Sister bi-sectomy Relation Name Status Comments Brother Father Mother Sister Social History Date Tobacco Use Types Packs/Day Years Used Never Smoker Smokeless Tobacco: Never Used Alcohol Use Drinks/Week oz/Week Comments No 0 Cans of 0.0 beer Sex Assigned at Date Recorded Not on file Industry Job Start Date Occupation Not on file Not on file Not on file Travel End Travel History Travel Start No recent travel history available. Last Filed Vital Signs Time Taken Vital Sign Reading 03/29/2018 2:57 PM [employer] Blood Pressure 135/63 03/29/2018 2:57 PM [employer] Pulse 58 03/29/2018 2:57 PM [employer] Temperature 36.7 C (98 F) 03/29/2018 2:57 PM [employer] Respiratory Rate 16 03/29/2018 2:57 PM [employer] Oxygen Saturation 98% - Inhaled Oxygen - Concentration 03/29/2018 2:57 PM [employer] Weight 76.4 kg (168 lb 8 oz) 03/29/2018 2:57 PM [employer] Height 147.3 cm (4' 10") 03/29/2018 2:57 PM [employer] Body Mass Index 35.22 Plan of Treatment Care Team Description Date Type Specialty Resource, [facility] E 09/27/2018 Office Visit Hepatology Health Maintenance Due Date Last Done Comments INFLUENZA VACCINE 01/22/2018 Procedures Comments Procedure Name Priority Date/Time Associated Diagnosis CBC W/PLT COUNT & AUTO Routine 03/29/2018 Cirrhosis of liver DIFFERENTIAL 3:49 PM [employer] without ascites, unspecified hepatic cirrhosis type (HCC) ALPHA FETOPROTEIN (AFP), Routine 03/29/2018 Cirrhosis of liver TUMOR MARKER 3:49 PM [employer] without ascites, unspecified hepatic cirrhosis type (HCC) PROTHROMBIN TIME/INR Routine 03/29/2018 Cirrhosis of liver 3:49 PM [employer] without ascites, unspecified hepatic cirrhosis type (HCC) CBC W/PLT COUNT & AUTO Routine 03/29/2018 Cirrhosis of liver DIFFERENTIAL 3:49 PM [employer] without ascites, unspecified hepatic cirrhosis type (HCC) HEPATIC FUNCTION PANEL Routine 03/29/2018 Cirrhosis of liver 3:49 PM [employer] without ascites, unspecified hepatic cirrhosis type (HCC) BASIC METABOLIC PANEL (7) Routine 03/29/2018 Cirrhosis of liver 3:49 PM [employer] without ascites, unspecified hepatic cirrhosis type (HCC) US ABDOMEN COMPLETE Routine 11/16/2017 Cirrhosis of [...] without ascites, unspecified hepatic cirrhosis type (HCC) after 04/09/2017 Results * CBC with platelet count + automated diff (03/29/2018 3:49 PM [employer]) Only the most recent of 2 results within the time period is included. WBC 4.3 3.5 - 10.5 K/L [facility] RBC 4.16 3.93 - 5.22 M/L [facility] Hemoglobin 12.3 11.2 - 15.7 GM/DL [facility] Hematocrit 38.0 34.1 - 44.9 % [facility] MCV 91.3 79.4 - 94.8 fL [facility] MCH 29.6 25.6 - 32.2 pg [facility] MCHC 32.4 32.2 - 35.5 GM/DL [facility] RDW 13.4 11.7 - 14.4 % [facility] Platelets 141 (L) 150 - 450 K/CU MM [facility] MPV 12.0 9.4 - 12.3 fL [facility] nRBC 0 0 - 0 /100 WBC [facility] % Neutros 58 % [facility] % Lymphs 32 % [facility] % Monos 6 % [facility] % Eos 3 % [facility] % Baso 1 % [facility] # Neutros 2.48 1.56 - 6.13 K/L [facility] # Lymphs 1.37 1.18 - 3.74 K/L [facility] # Monos 0.27 0.24 - 0.36 K/L [facility] # Eos 0.13 0.04 - 0.36 K/L [facility] # Baso 0.03 0.01 - 0.08 K/L [facility] Immature 1 0 - 1 % [facility] Granulocytes-Relative [facility] Specimen Blood Performing Organization Address City/State/Zipcode Phone Number [facility] [address] [place] [address] [facility] * Alpha fetoprotein (AFP), tumor marker (03/29/2018 3:49 PM [employer]) Only the most recent of 2 results within the time period is included. Alpha-Fetoprotein 3.8 <10.0 ng/mL [facility] Specimen Blood Performing Organization Address City/[facility] Phone Number [address] [address] [phone] * Pro-time/INR (03/29/2018 3:49 PM [employer]) Only the most recent of 2 results within the time period is included. Protime 14.2 11.7 - 14.7 seconds [facility] INR 1.1 <=5.9 [facility] Specimen Blood Narrative Performed At RECOMMENDED COUMADIN/WARFARIN INR THERAPY RANGES [facility] STANDARD DOSE: 2.0 - 3.0 Includes: PROPHYLAXIS for venous thrombosis, [facility] systemic embolization; TREATMENT for venous thrombosis and/or pulmonary embolus. HIGH RISK: Target INR is 2.5-3.5 for patients with mechanical heart valves. Performing Organization Address City/[facility] Centerconv Phone Number [phone] [place] [address] * Hepatic function panel (03/29/2018 3:49 PM [employer]) Only the most recent of 2 results within the time period is included. Protein, Total 7.1 6.0 - 8.3 gm/dL [facility] Albumin 4.0 3.5 - 5.0 g/dL [facility] Total Bilirubin 0.5 0.2 - 1.2 mg/dL [facility] Bilirubin, Direct 0.2 0.1 - 0.5 mg/dL [facility] Alkaline Phosphatase 87 40 - 150 U/L [facility] AST 22 5 - 34 U/L [facility] ALT 19 6 - 55 U/L [facility] Specimen Blood Performing Organization Address City/State/Zipcode Phone Number [facility] [address] [place], [place] [id number] [facility] * Basic Metabolic Panel (03/29/2018 3:49 PM [employer]) Only the most recent of 2 results within the time period is included. Sodium 141 136 - 145 meq/L [facility] Potassium 3.8 3.5 - 5.1 meq/L [facility] Chloride 112 (H) 98 - 107 meq/L [facility] CO2 23 22 - 29 meq/L [facility] BUN 17 7 - 21 mg/dL [facility] Creatinine 0.77 0.57 - 1.25 mg/dL [facility] Glucose 89 70 - 105 mg/dL [facility] Calcium 8.9 8.4 - 10.2 mg/dL [facility] EGFR 74Comment: ESTIMATED GFR IS mL/min/1.73 sq m [facility] NOT ACCURATE CREATININE [facility] CLEARANCE IN PREDICTING GLOMERULAR FILTRATION RATE. ESTIMATED GFR IS NOT APPLICABLE FOR DIALYSIS PATIENTS. Specimen Blood Performing Organization Address [facility]/Zipcode Phone Number [facility] [address] [place], [place] [phone] [facility] * US abdomen complete (11/16/2017 2:10 PM CDT) Narrative Performed At FINAL REPORT [facility] [employer] Ultrasound of the Abdomen, complete Clinical History:Cirrhosis [...] MD Report Verified Date/Time:11/16/2017 14:32:29 Reading Location: [address] Radiology Reading Room Procedure Note Interface, [...] Report Verified Date/Time: 11/16/2017 14:32:29 Reading Location: [address] Radiology Reading Room Performing Organization Address City/State/Zipcode Phone Number [facility] * TSH (2017 4:20 PM CDT) TSH 0.12 (L) 0.35 - 4.94 uIU/mL [facility] Specimen Blood Performing Organization Address City/State/Zipcode Phone Number [facility] [address] [place] [address] [facility] after 04/09/2017 Insurance Payer Benefit Subscriber ID Type Phone Address Plan / Group MEDICARE MEDICARE A xxxxxxxxxxx Medicare B CIGNA - MGD CARE CIGNA xxxxxxxxxxx HMO/POS HMO/POS/OP EN ACCESS xxxxxxxxx Other Govt FOR LIFE (, [place], [employer], etc.)
[2018-04-10 11:00] VITALS: BP 136/82
== END | disposition home or self-care (01) ==
LOC: OR 07:53
PROVIDERS: ATTEND Ophthalmology
DX: H25.12 Age-related nuclear cataract, left eye (principal); I10 Essential (primary) hypertension; B19.20 Unspecified viral hepatitis C without hepatic coma
CPT/HCPCS: 66984; J2250; V2632

== ENCOUNTER 2025-01-17 18:52 | Emergency (ER) | payer MEDICARE, OTHER ==
[~2025-01-17] VITALS: Ht 152.4 cm; Wt 79.4 kg
[~2025-01-17 18:52] MED LIST changes: -FENTANYL CITRATE/PF 100MCG/2 ML INJ ONE; -MIDAZOLAM HCL 2 MG/2 ML VIAL ONE; -OR PHACO EYE KIT ONE; -PREOP PHACO EYE KIT ONE
[2025-01-17 19:57] LABS: BASOPHILS % 0.3 % (0.0-1.0); EOSINOPHILS % 0.4 % (0.0-6.0); LYMPHOCYTES % 14.9 % (18.0-39.1); MONOCYTES % 4.0 % (4.4-11.3); NEUTROPHILS % 79.5 % (38.7-80.0); RED CELL DISTRIBUTION WIDTH 13.4 % (11.7-14.4)
[2025-01-17 20:16] LABS: EST GLOMERULAR FILTRATION RATE 61.0 ML/MIN (>=60)
[2025-01-17] MEDS: ONDANSETRON HCL INJ 2MG/ML 2ML 2 MG/ML VIAL IV STA ×2 (20:21)
[2025-01-17] MEDS: BELLADONNA ALK/PHENOBARBITAL 5 ML UDC PO STA (20:39)
[2025-01-17] MEDS: MAGNESIUM/ALUMINUM/SIMETHICONE 30 ML UDC PO ONE (20:40)
[2025-01-17] MEDS: LIDOCAINE VISC 2% SOLN 15 ML UDC PO ONE (20:40)
[2025-01-17 21:17] LABS: LEUKOCYTE ESTERASE ,URINE TRACE (NEGATIVE); PROTEIN,URINE DIPSTICK 1+ (NEGATIVE)
[2025-01-17 21:18] LABS: URINE UROBILINOGEN 0.2 mg/dL (0.2 - 1)
[2025-01-17 21:35] LABS: EPITHELIAL CELLS,URINE RARE /LPF
[2025-01-17] MEDS ORDERED: ONDANSETRON ODT4 MG PO (21:59)
[2025-01-17 22:00] VITALS: PULSE 55; RESP 15; TEMP 98
[2025-01-17 22:19] VITALS: BP 156/71; PULSE 55; RESP 15; TEMP 98; O2SAT 100
== END 2025-01-17 22:15 | disposition home or self-care (01) ==
LOC: ER 19:33
DX: R11.0 Nausea (principal); R07.89 Other chest pain; F41.0 Panic disorder [episodic paroxysmal anxiety]; I10 Essential (primary) hypertension; B19.20 Unspecified viral hepatitis C without hepatic coma; Z85.3 Personal history of malignant neoplasm of breast
CPT/HCPCS: 36415; 71045; 80053; 81001; 83690; 84484; 85025; 93005; 99284; J2405